=== PATIENT | female | born 2000 | race African-American/Black ===

== ENCOUNTER 2025-02-02 10:19 | Outpatient (OUT) | payer OTHER, SELFPAY ==
--- NOTE | 2025-02-02 11:07 | XR_ITS ---
The [address] [address] Patient Name: ELIAS SOUZA MRN: [id number] date: 2000 Sex: F Assigned Patient Location: [facility] Current Patient Location: [facility] Accession/Order Number: [id number] Exam Date: 02/02/2025 12:43 Report Date: 02/02/2025 12:43 At the request of: JAZMYNE VELEZ DO Procedure: XR chest 2V PA AND LATERAL CHEST: CLINICAL HISTORY: Preop clearance for tubal ligation COMPARISON: None There is no focal parenchymal consolidation, effusion or pneumothorax. The cardiac, hilar and mediastinal silhouettes are within normal limits. There is no vascular congestion. The visualized bony thorax is intact. XR/XR chest 2V IMPRESSION: NO ACUTE CARDIOPULMONARY ABNORMALITY. Impression dictated by: Gely Tinoco M.D.02/02/2025 12:43 PM Dictation Location: [place] [address] Electronically authenticated by: [id number] Y Date: 02/02/2025 12:43
== END 2025-02-02 10:20 | disposition home or self-care (01) ==
LOC: PST 10:21
PROVIDERS: Visit Provider Obstetrics & Gynecology
DX: Z01.810 Encounter for preprocedural cardiovascular examination (principal)
CPT/HCPCS: 71046

== ENCOUNTER 2025-02-17 08:24 | Day surgery (SDC) | payer OTHER, SELFPAY ==
[2025-02-02 10:44] VITALS: BP 140/94; PULSE 81; TEMP 36.3; O2SAT 100; BMI 53.7
[2025-02-17] VITALS (15 sets, daily range): BP systolic 123–149; BP diastolic 73–97; PULSE 77–89; TEMP 36.1–36.6; O2SAT 94–100; BMI 52.1
--- OUTSIDE RECORDS SUMMARY | 2025-02-17 08:28 | XMS_ITS | CCD ---
Author Organization [facility] Inform ion Partnership [facility] Care Team Providers Care Physiological Chemist Name Role Phone Darlene Ledesma Unavailable [phone] Amie Hayden Unavailable Darlene Ledesma CNP Primary Care Provider Ana Donnelly Unavailable Kim Crews Attending UnavailKim Bronson Admitting Unavailabl e NO FAMILY, PHYSICIAN Primary Care Unavailable Darlene Ledesma Primary Care Unavailable Mulugeta Kahn Admitting Unavailable Muulgeta Kahn Attending Unavailable Unavailable Primary Care Provider UnavailJAZMYNE Pinto Attending Unavailable JAZMYNE SNOW Attending Unavailable Medications Current Medications Medication Drug Class(es) Dates Sig (Normalized) Sig (Original) [id number] 200 actuat albuterol 0.09 mg/actuat metered dose inhaler (9 sources) beta2-Adrenergic Agonist Start: 06-12-2022 take 1 puff(s) by inhalation every four hours as needed Proventil HFA 108 (90 Base) MCG/ACT 1 puff as needed Inhalation every 4 hrs for 30 day(s) Jun, Active take 1 puff(s) by in halation every four hours as needed Albuterol Sulfate HFA 108 (90 Base) MCG/ACT 1 puff as needed Inhalation every 4 hrs Active take 1 puff(s) by in halation every four hours as needed Albuterol Sulfate 108 (90 Base) MCG/ACT Aerosol Powder, breath activated Inhale 1 puff every 4 hours as needed for Shortness of Breath. 0 Active nystatin 100 unt/mg topical powder (3 sources) Polyene Antifungal Start: 03-19-2022 Nystatin 10 0000 UNIT/GM 1 application Externally Twice a day for 10 day(s) PRN March, Active predniSONE 20 mg oral tablet (1 source) Start: 02-01-2022 take 2 tablets by mouth every twenty-four hours prednisone 20 MG 2 tablets Orally daily for 5 days Jan, Active Completed/Discontinued Medications Medication Drug Class(es) Dates Sig (Normalized) Sig (Original) nystatin 297703 unit/gm Powder (1 source) End: 05-07-2022 nystatin 215593 unit/gm Powder Apply 1 Application topically 2 times daily. 0 05/07/2022 Discontinued Problems Active Problems Problem Classification Problem Date Documented Da te Episodic/Chronic Anxiety disorders (3 sources) Anxiety; Translations: [Anxiety disorder, unspecified] Chronic Asthma (4 sources) Mild intermittent asthma; Translations: [Mild intermittent asthma, uncomplicated] Onset: 06-12-2022 Resolved: 06-12-2022 Chronic Contraceptive and procreative management (5 sources) Patient encounter status; Translations: [Encounter for other general counseling and advice on contraception] Onset: 01-02-2025 01-02-2025 Episodic Mood disorders (2 sources) Moderate major depression, single episode; Translations: [Major depressive disorder, single episode, moderate] Chronic Nonmalignant breast conditions (4 sources) Hypertrophy of breast; Translations: [Large breast] Onset: 03-19-2022 Resolved: 04-16-2022 Episodic Other connective tissue disease (1 source) Pain in left foot Episodic Other nervous system disorders (7 sources) Carpal tunnel syndrome; Translations: [Carpal tunnel syndrome, bilateral upper limbs] Chronic Other nervous system disorders (6 sources) Chronic pain; Translations: [Other chronic pain] Chronic Other nervous system disorders (2 sources) Other chronic pain Onset: 03-19-2022 Resolved: 04-16-2022 Chronic Other nervous system disorders (9 sources) Paresthesia of skin; Translations: [Paresthesia of hand, bilateral] Onset: 12-30-2021 Resolved: 12-30-2021 Episodic Other nutritional; endocrine; and metabolic disorders (2 sources) Body mass index 40+ - severely obese; Translations: [Morbid (severe) obesity due to excess calories] Onset: 05-07-2022 Chronic Spondylosis; intervertebral disc disorders; other back problems (4 sources) Cervicalgia; Translations: [Chronic back pain ] Onset: 03-19-2022 Resolved: 04-16-2022 Episodic Past or Other Problems Problem Classification Problem Date Documented Da te Episodic/Chronic Mycoses (1 source) Candidiasis of skin and nail Onset: 03-19-2022 Resolved: 03-19-2022 Episodic Other connective tissue disease (1 source) Other enthesopathies, not elsewhere classified Onset: 02-01-2022 Resolved: 02-01-2022 Episodic Other injuries and conditions due to external causes (1 source) Unspecified injury of right wrist, hand and finger(s), initial encounter Onset: 02-01-2022 Resolved: 02-01-2022 Episodic Other non-traumatic joint disorders (2 sources) Pain in right shoulder Onset: 03-19-2022 Resolved: 04-16-2022 Episodic Other non-traumatic joint disorders (2 sources) Pain in left shoulder Onset: 03-19-2022 Resolved: 04-16-2022 Episodic Other nutritional; endocrine; and metabolic disorders (2 sources) Other symptoms and signs concerning food and fluid intake Onset: 12-30-2021 Resolved: 06-12-2022 Episodic Other screening for suspected conditions (not mental disorders or infectious disease) (2 sources) Encounter for screening for lipoid disorders; Translations: [Encounter for screening for other metabolic disorders] Onset: 12-30-2021 Resolved: 12-30-2021 Episodic Results Test Name Value Interpretation Reference Range Facility XR CHEST 2Von 02-02-2025 [place] [address] XRay Report Signed Patient: ELIAS NUNEZ MR#: [id number] : 2000 Acct:[id number] Age/Sex: 24 / F ADM Date: 02/02/25 Loc: PST Attending Dr: Jazmyne Snow D.O. Ordering Physician: Jazmyne Snow D.O. Date of Service: 02/02/25 Procedure(s): XR chest 2V Accession Number(s): [id number] cc: Jazmyne Snow D.O.; Physician,Non-Staff M.DSade [facility] [place] [id number] Patient Name: ELIAS NUNEZ MRN: [facility]:[id number] date: 2000 Sex: F Assigned Patient Location: [facility] Current Patient Location: [facility] Accession/Order Number: [id number] Exam Date: 02/02/2025 12:43 Report Date: 02/02/2025 12:43 At the request of: JAZMYNE SNOW DO Procedure: XR chest 2V PA AND LATERAL CHEST: CLINICAL HISTORY: Preop clearance for tubal ligation COMPARISON: None There is no focal parenchymal consolidation, effusion or pneumothorax. The cardiac, hilar and mediastinal silhouettes are within normal limits. There is no vascular congestion. The visualized bony thorax is intact. XR/XR chest 2V IMPRESSION: NO ACUTE CARDIOPULMONARY ABNORMALITY. Impression dictated by: Gely Tinoco M.D.02/02/2025 12:43 PM Dictation Location: [place] [address] Electronically authenticated by: [id number] Y Date: 02/02/2025 12:43 Dictated By: Gely Tinoco M.D. Signed By: 02/02/25 1246 DD/ 1243 TD/TT: Plant And Equipment Worker: [facility] Radiology, Radiologist, MD - 02/02/2025 [place] [address] XRay Report Signed Patient: ELIAS NUNEZ MR#: [id number] : 2000 Acct:[id number] Age/Sex: 24 / F ADM Date: 02/02/25 Loc: [facility] Attending Dr: Jazmyne Snow D.O. Ordering Physician: Jazmyne Snow D.O. Date of Service: 02/02/25 Procedure(s): XR chest 2V Accession Number(s): [id number] cc: Jazmyne Snow D.O.; Physician,Non-Staff Lucina The [address] [address] Patient Name: ELIAS NUNEZ MRN: [facility]:[id number] date: 2000 Sex: F Assigned Patient Location: [facility] Current Patient Location: [facility] Accession/Order Number: [id number] Exam Date: 02/02/2025 12:43 Report Date: 02/02/2025 12:43 At the request of: JAZMYNE SNOW DO Procedure: XR chest 2V PA AND LATERAL CHEST: CLINICAL HISTORY: Preop clearance for tubal ligation COMPARISON: None There is no focal parenchymal consolidation, effusion or pneumothorax. The cardiac, hilar and mediastinal silhouettes are within normal limits. There is no vascular congestion. The visualized bony thorax is intact. XR/XR chest 2V IMPRESSION: NO ACUTE CARDIOPULMONARY ABNORMALITY. Impression dictated by: Gely Tinoco M.D.02/02/2025 12:43 PM Dictation Location: [place] [address] Electronically authenticated by: [id number] Y Date: 02/02/2025 12:43 Dictated By: Gely Tinoco M.D. Signed By: 02/02/25 1246 DD/ 1243 TD/TT: Plant And Equipment Worker: [facility] Radiology Study observation (narrative) [facility] XR CHEST [facility]Ordered By: [facility] on 02-02-2025 [facility] [employer] Work Phone: Coding Summaryon 12-21-2023 Coding Summary HTMLBase 64 AjsgfuxyQWm8hPb+PGhlY WQ+QN7UKTKlG02haNApaW 7gC7FGDAwPEjwaEDRBMXg OXlSawbMqMR1lkUMlBSXa IC8+BY3qFGFgUghrnKVkv 5D6hKF0P62loe2xXLaocM W1TCTlYlSaltxze2xpqOt 6IDcuNmluOyBt GOXwnR04JKJ4cM52Cu95q NMthHQrc8xieQm6OfRqWC IxNJW2qIadJYauq6IuUNM fX15fsINdi7Q1 GCFddOjynAUeSqEsuIH9a N0uSGpqlggrt0ronaesRa d6yc61hRDhz7A8kTG9K4G afyN6GONxyIRu XxuuhTWMwN6ijvutw2fob yhrVsQmTRHkIAx9FIk0EN RojIzrBfTrZL68BPP1IGQ rzoItJ2DqDFPf eCdwGsC5o0Y3Nq4GW0DAY rmmW4VMTVTECLvodEV+PC 06ww76A4FsVylzYgc6SYK kRAJ4gGF4cZ5z ZOZfLMysr3O7aZI3U9Dtx jIote4wm5thIDGxNFljS6 2wwUWjs5C1OLDodYG4UVB upRjuAyUlkC70 Oyc+VCCmjCdpi9YwCivcx 2emh1adkXk0MtyyBZHryw TlwXpgAPL8l2CkGz8bUKA fmFD4hKF2hV2d DaBcJzP8VHvdM328HqTqt ULpLkmpT17bK6UmsLD+PH IjMmp1UILikFigVK0zA0Q hZGRpbmctbGVm yZfaHN4eUMXibwxaNSYrc C4wFNTsA4t2CdSuGiL8HT haF7QlQYNejetxKm20mX5 lDuWkHnM2PQip K3PydkR2BXBkkGIiZUbzR PJ6A33qz6K4AVRxUNVsSG P8mTP9mJ2ulGprdwuldOS mdDsgdmVydGlj XQwrUWpiB149PXLksAtqY kNvZGluZyBEYXRlOiAgMD IvMTkvMjAyNDwvdGQ+PHR oKTA2lStoDEAf gSKcEBouXk5vbMzbnDtsK Z4pHCQzyptiYHGqpX5ySE PtqJHhgFolFN9uFTGqrzp pg125HnBwBXJ4 VFKeyEHhR9IveC9jFpGdH HWcSRReS0KjeXVkHYgmX8 49DPwoNgJ0KUQcnuZbO1H sLWFsaWduOiB0 o8F8Gz3Ep4WvezbeQ1Dam XRkQdWlMefyMJi5Q1KxSc wvdHI+FK81NOPfQP28XVw 2YZI6yUqiFYej FGFiJ6BtxB1uPyIaJLIfV GRkOyc+PHRhYmxlIHdpZH RoPScxMDAlJyBzdHlsZT0 tEz5vTPJoKEQe kMhklTWpVuCax6uwZHQsN DljZC0enTiuF1PmlYI4KJ Mck0d7Ox87X24rE4IjcUH +MRKabON7wBF5 nL3vXbCoGaO3XCgiP571K lUnxARxSjuwb5fmh2nkeB y7DaN0EXSmkeHakBlyOVD 8i7AuLy49Q87s IHdpZHRoPSIxNSUiIHZhb Qybrk7kxX4cPd3+PGNvbC C5cWH3xC3tCpBmPgU5ROs qA753HuPnrKTe Ihiej1rvw1aejGf5PwLzQ USivmKcnDavZKC7k0VuXs 56U7AukWjcs9KmYxn9de9 0lZYti9X2kAV9 T5SvQTMuffoylXGszNfiV G4eERDrcbmhBZSheT6uGV YvE1s9WsUjFiK2FJqaC0B vvnT0WTJvrRKp VWYgmLPCdQ1decadg3zgq qosMsWcNNVvNBc3IOr2TH OsyQubPlTdRRB4BgB4XLH 0yLSjmR5zlIzj fvpqfD3yMon+UXX4oRXsz AXWEM6iPfhlyCD+PHRkIH Y6lTnqCAboQZJxiA3mCOG xB9r4CxPkJqO0 NMyvM1VindO2OXNokBYbX XTllDXVjL9ytmcyv9vscu bjVmIdELDcLQg3AAp7SGH saWduOiBsZWZ0 MiE4JQD3qTHhtK9vpDeab jcnpZ1nVfm+QmlydGggRG C5TSb3H0UmXss4SCJkjTr tKG3gjEDiVDcc Xt5enFlzpFehIF5cPNHyz ekdj863NbGzu9qnCGIxsO VyLOunCYE2P75ko6Y8GRH dMQEsIGI2uQM6 cR3nsEfknycliMNjcTyxq rJncAhvYXpnPJvvL297HC GzvBptTkWwMVc8B5HmJea 0GJGonWvrJL1i oKVaYVtrOl3jkXnjgVbfM M2lEURnmsazc292RmMjk8 qwYYHpfATxGXzmZJJ1G05 xw0O3SJSsOFUt TCY8tWN1bG9loBrspaoqf GVmdDsgdmVydGljYWwtYW hbQ862DZEkaJhpNrToeUf 9T4JrAbg5ISRg jPatCX3uzCRpRMpsJh1mv DughRdkFV9sSUObwwwkt7 00OuDys8mfKNTdzUOmJNp iNHF2J50vy3B8 XRFvRIEaZPW8jUD8oF5bx GlnbjogbGVmdDsgdmVydG weDYgdQIejP805CJUudTl nPlBhdGllbnQg JPrfVHr4Z3FiCzbrdVI+P L83SGOiMO82tRGcyCXtu4 mnwCi7HgVcFYYkLYJ9pUz qYHkgl8VfVNNa A23uxGGvp4P7SIDbyYzse RIgMhZxqCB5oJ0fJMyqfr bgk3quvsrmOscmw7zfcf6 4oQ31H39lLFgx ZHRoPSIzMCUiIHZhbGlnb b0gcG7sGz4+TOLchEJ2kR T4rR3nMOUyNxA4DOlaE41 9InRvcCIvPjxj d4fdi3cysGg5EzM0WLAms sNaqLpyKVV4j3EbWp32U6 9sIHdpZHRoPSIyMCUiIHZ dxBidqs8laN5o Ii8+DDGmuGL4nFV3bB9mH lPjLrS8KCemS909EvSrwH XyTafxB43vB8BwrKV+PHR lHdj5GCUryHpj NM5xpZClVLnnBy8rYZA7Y tAqKwSkBAbuL1FrFDHqab zbrshfmIK4YKDxGUMztK6 9Et7eiMpoZRSi mZVMjT4bnypgc4fpthgsO rPxKXJzPSs2MXh6DQSdgD lmMtMtBMP6BlV9SGS9nGA jiX5edNxowmlb cB3fH8QtWLCedlybWl00m S4fIgLwWsC0TJwnYbj+RE FOSUVMUywgTUFLQUlMQSB rED2HFWv2L5Jo Cyf8YILppCwxML8ywEEtE VygQm4llTmpnZrqQX7bZG ZkokpsTRIkcJ3dUBXxtMC erIktKB4pWEYd dsxkp745DjObBIA2QJKvi TLrI7YozV4bOjKyUPRzGQ PzR3OjlHXsIOjdR399MNx cIwP0QRQwpcEy O0YjOCIovIlbXnZ1n3N5F k8wJq1qSD3rVSMmAB15QO 26jWSnm6I2sEL5L2AyKCA pbmctcmlnaHQ6 YCXhZSRaaS91kPFeXAgoV b5sj6M7o328BYJrBXGytT 88Bv5awLsvINEbcJFIfI3 gabane7yrovpe YkWeCZEySJb8ZFb6ULEom RnxBeCqDNT4LrX2HHF7zB NhyH9tbOapcjhqnY1oVsh +MjIgWWVhcnM8 S8PvZus7WPIqdRnrZZ8yn RFlULqkBj4sxWtbwFdkGP 6cRSMgvhwdFOWowK0yWHM jsWYtqAouHI1n NFKeyzzws902MyFrJTD0M LKmvKHgJ0UvuZ0fYtPgZG BgEBBiU8YljYTvUUuwA00 7EKwlHtX8TRCn fhErH4GqFICknEjbDcC7s 3W2Du2IHV0YTNI4Z4MsNm j0IAWazIihGI9uoMGeKEd wLd9gvKuwmBfd RB4oJYYdelaoQQNswI8aL EFufUIsbJsyEF0qKYFgis jaw070BjYiKOP6LHLatQR nS4WgbX0wWmIu JVAmNQHpO5QtqULxZIurK 213OAorKcQ2EXFnrqCyF5 YuCGNpbGwbBrQ3w1H5Gm2 SuQWmM9YdE0k6 L8PlAlsttRK+JY31AKOaE D06sJEgvEXii7iiuWw4Mq OlFFXpGMJ1iEcePXoxg8B lHDZfF36lkSPc a1M5DVQbaEcszBGoElSbh UD5aZ7qUTgvvvtwh2vpux mdEnlmw6grai05hI31L24 sIHdpZHRoPSIz RBYeQHAfsParex1gvQ2aC i8+GTBtwFU5aIY2aC5zLt YhSfP0CWfxY084KwBukJF dOtspq7vrm1tm rPy6NsHdPNSdlaXecItoN KA5l0LgUf87T09mPOozAV RoPSIyMCUiIHZhbGlnbj0 ljK4bHg0+PC9j l0uakv72kR11oUW+PHRkI OX0yIcnEEvuWKAblQ4lUW gxAqS8MFVoZbCjkK93pLP oKPxyLd5hwQyo wSklXM9nFHTnunkvt870M tHda7jvJVHoqTRlSKmcXH P4C42yt1M4MRGcWUCnVWX 9vRL9tQ1otYrv bjogbGVmdDsgdmVydGljY SswLZssT233AZZwqKueZf MfjREuW1huioSRKE8hSba vdGQ+PHRkIHN0 aAqlJRreJOSyoY4uNBWoM 0j2WlDcCdH8HFxqZ3Knwp D3DAUipRMvBHPrkJSCeZ6 njmlin1hjioxw MzKrTQOvFPt3TVu8ZNSjs XsqTtRgSJB9JnX6WQH2wV GxaZ5bqQcdgssjkE3jUab +RklOOjwvdGQ+ JINjSBI6zKncEDdzCEZgm Q4wTHGjJ8n9NsAqFbR7CC hnV2CsdhC5MGRzgQQyCXC uxRYSvW2brpsi a3tojbwcKrOuOHToVHx3U Kn8JCTitQpyGhDaIDP6Rn G4FYB9yZXuiM8ouFbvlvr bcT5kUfk+TVJO OjwvdGQ+SPEiBUW4kBacA PwnIEHhpB9dNHFpD9u2Rk QfAeU3SEuiY1RaseN5SVH vbGQgMTBwdCBU vF9odksyf7ekxaosRxMeR NYmVEm3OFa6IAErbKxvOr MbUPT8VjV6FKL1eIBdpF4 sbZatzkypmZ8d Oyc+ACQ4PMA8FJ18GG64F 3RyPjwvdGFibGU+PHRhYm xlIHdpZHRoPScxMDAlJyB zwQgkUS6hFk0b ZGV (more content not included)... Normal [facility] .QC SARS-CoV-2 (COVID-19)/Fl u/RSV (GeneXpert)on 12-15-2023 Internal Control Pass [facility] Comment on above: Order Comment: Order ed by Niya. [[email or web address]] Performed By: #### [id number] #### [facility] (DEFAULT) [address] [place] [address] COVID/Flu/RSV (GeneXpert)on 12-15-2023 Flu A (GXpert COVFLURSV) Positive Normal Negative [facility] Comment on above: Performed By: #### [id number] #### [facility] (DEFAULT) [address] [place] [address] Flu B (GXpert COVFLURSV) Negative Normal Negative [facility] Comment on above: Performed By: #### 7 [id number] #### [facility] (DEFAULT) [address] [place] [address] RSV (GXpert COVFLURSV) Negative Normal Negative [facility] Comment on above: Performed By: #### 7 [id number] #### [facility] (DEFAULT) [address] [place] [address] SARS-CoV-2 (COVID-19) RNA LUIS+probe Ql (Unsp spec) Negative Normal Negative [facility] Comment on above: Result Comment: Perf ormed by PCR methodology. Performed By: #### 7 [id number], [id number] #### [facility] (DEFAULT) [address] [place] [address] ED Clinical Summaryon 2023 ED Clinical Summary [facility] Emergency Department [address] [place] [address] ED Clinical Summary PERSON INFORMATION Name: ELIAS NUNEZ Age: 23 Years Sex: FEMALE : 2000 MRN: Acct#: Visit Reason: Fever; Body aches; Wheezing-Minor; Cough; Nausea and vomiting; BODY ACHES, SOB Arrival: 12/15/2023 20:20:10 Discharge: 12/15/2023 21:34:00 LOS: 000 01:14 Check In: 12/15/2023 20:20:10 Checkout:12/15/2023 21:34:00 Address: [facility] [address] [place] [address] PCP: Darlene Ledesma CNP PROVIDER INFORMATION Provider Role Assigned Unassigned Mulugeta Kahn MD ED Provider 12/15/2023 20:46:02 VITALS INFORMATION Vital Sign Triage Latest Temperature Tympanic Temperature Temporal Artery Pulse Rate O2 Sat 100 % 100 % Respiratory Rate 18 br/min 18 br/min Blood Pressure /107 mmHg /107 mmHg MEDICAL INFORMATION Medications Given: Medication Dose Route benzonatate 100 mg Oral ondansetron 4 mg Oral guaiFENesin (GuaiFENesin oral liquid) 500 mL Oral Allergy Information: No known allergies PHYSICIAN DOCUMENTATION DISCHARGE INFORMATION: Discharge Disposition: Home Discharge Location: Home PATIENT EDUCATION INFORMATION Instructions: Viral Respiratory Infection, Wcbd-Nr-Bjqp Follow-Up: With: Address: When: Darlene Ledesma [address] [place] [phone] [employer] (1) Within 5 to 7 days Comments: You were seen in the emergency department for evaluation of cough and cold symptoms. Your examination suggest this is from an viral upper respiratory infection. This will likely to improve over time. No antibiotic will be necessary as your immune system will likely get rid of the infection. Your symptoms may still be contagious to other people around you. Use universal precautions to avoid spreading the germs. Take 2 tablets acetaminophen or 2 tablets of ibuprofen 3 times a day as needed for aches or discomfort. Use throat lozenges or cough drops to help with throat irritation and cough. May take prochlorperazine 3 times a day as needed for nausea vomiting. May take dextromethorphan 10 mL 3 times a day as needed for cough. Hydrate yourself adequately. Avoid tobacco or other smoking which may irritate the lungs that may exacerbate the cough. Contact your assigned on-call doctor for a follow-up appointment if you do not have a local family doctor. Alternatively, you may follow-up with the [facility] if you are not able to see a PCP in the recommended time. Continue with the current treatment as outlined by the ER physician, Dr Kahn. Called the emergency department if you have any questions concern. Return to the emergency department if you have significant symptoms that concerns you. DIAGNOSIS: Viral URI with cough Patient Understands: Yes - Patient/family/caregi rosalia verbalizes understanding of instructions given Comment: Normal [facility] ED Note - Physicianon 2023 ED Note - Physician Patient: ELIAS NUNEZ Age: 23 years Sex: FEMALE : 2000 Associated Diagnoses: Viral URI with cough; Influenza A Author: Mulugeta Kahn MD Basic Information Time seen: Date & time 12/15/2023 20:30:00. History source: Patient. Arrival mode: Private vehicle. History limitation: None. Additional information: Chief Complaint from Nursing Triage Note : Chief Complaint 12/15/2023 20:31 EST Chief Complaint Pt states she has had cough, nausea, vomiting, body aches, and headache for 3 days. Low grade fever upon arrival to ED. 2 episodes of emesis today. States not able to keep anything down. . History of Present Illness 23-year-old female presented to ER for evaluation of coughing, runny nose, sore throat, body aches, vomiting. Patient stated that she had onset of symptoms about 2 to 3 days ago. Began with sore throat. Then noted that she had nasal congestion, body aches, headaches, cough. Stated that she had multiple cough to the point that her abdomen hurts. Stated that she had coughed to the point of vomiting. Stated that she had prior history of asthma, has been using albuterol on an as-needed basis. Patient admits to smoking marijuana once daily. Stated that she works at [employer]. Recall that she had previous influenza vaccine. Recall that she had previous COVID and COVID-vaccine. Review of Systems Constitutional symptoms: Chills, fatigue. Skin symptoms: Negative except as documented in HPI. Eye symptoms: Negative except as documented in HPI. ENMT symptoms: Sore throat, nasal congestion. Respiratory symptoms: Cough. Gastrointestinal symptoms: Vomiting, No diarrhea, Genitourinary symptoms: No dysuria, Musculoskeletal symptoms: Muscle pain, Joint pain. Neurologic symptoms: Headache. Endocrine symptoms: Negative except as documented in HPI. Health Status Allergies: Allergic Reactions (Selected) No known allergies. Medications: (Selected) Documented Medications Documented ProAir HFA: 2 puff(s), INH, QID, PRN: wheezing, 0 Refill(s). Past Medical/ Family/ Social History Medical history: No active or resolved past medical history items have been selected or recorded., Reviewed as documented in chart. Surgical history: No active procedure history items have been selected or recorded., Reviewed as documented in chart. Family history: No family history items have been selected or recorded., Reviewed as documented in chart. Social history: Social & Psychosocial Habits Alcohol 09/19/2022 Alcohol Use: Never Substance Use 11/12/2022 Substance use: Never Tobacco 11/12/2022 Smoking tobacco use: Never tobacco user Electronic Cigarette/Vaping 11/12/2022 Electronic Cigarette Use: Never , Reviewed as documented in chart. Problem list: Active Problems (2) Asthma Seasonal allergies , per nurse's notes. Physical Examination Vital Signs Vital Signs 12/15/2023 20:31 EST Temperature Oral 37.5 DegC HI Heart Rate Monitored 88 bpm Respiratory Rate 18 br/min Systolic Blood Pressure 122 mmHg Diastolic Blood Pressure 107 mmHg HI SpO2 100 % Oxygen Therapy Room air . General: Alert, no acute distress, Examination revealed normal developed 23-year-old female, awake and alert; no distress at this time. Slightly nasal congestion. Skin: Warm, dry, intact. Head: Normocephalic, atraumatic. Neck: Supple, trachea midline, no tenderness. Eye: Pupils are equal, round and reactive to light, extraocular movements are intact, normal conjunctiva. Ears, nose, mouth and throat: Tympanic membranes clear, oral mucosa moist, no pharyngeal erythema or exudate. Cardiovascular: Regular rate and rhythm, No murmur. Respiratory: Lungs are clear to auscultation, respirations are non-labored, breath sounds are equal, Symmetrical chest wall expansion, No wheezes, rales, rhonchi's,. Gastrointestinal: Soft, Nontender, Normal bowel sounds. Back: Normal range of motion. Musculoskeletal: Normal ROM, normal strength, no tenderness. Neurological: Alert and oriented to person, place, time, and situation. Medical Decision Making Differential Diagnosis:: Bronchitis, upper respiratory infection, asthma, pneumonia, influenza. Orders Launch Orders Pharmacy: dextromethorphan-guai fenesin 30 mg-600 mg oral tablet, extended release (Order): 1 tab(s), Oral, Once ondansetron (Order): 4 mg, Oral, Once benzonatate (Order): 100 mg, Oral, Once Miscellaneous Request: Excuse from Work/School (Order): 12/15/2023 21:02 EST, Seen in ER for medical reason. Please excuse from school. May return on Thursday. Results review: Lab results : Lab Flowsheet 12/15/2023 20:44 EST SARS-CoV-2(Covid19)PC R(GXpert COVFLURSV) Negative Flu A (GXpert COVFLURSV) Positive Flu B (GXpert COVFLURSV) Negative RSV (GXpert COVFLURSV) Negative . Reexamination/ Reevaluation Relevant differential diagnosis: See above discussion: Bronchitis, URI, viral syndrome, influenza, RSV, COVID, asthma, croup, pneumo (more content not included)... Normal [facility] ED Patient Summaryon 024 ED Patient Summary [facility] - Emergency Department [address] [place], [place] [id number] PATIENT DISCHARGE INSTRUCTIONS Patient Information Name: ELIAS NUNEZ Age: 23 Years Date of : 2000 Reason For Visit: Fever; Body aches; Wheezing-Minor; Cough; Nausea and vomiting; BODY ACHES, SOB Arrival Time: 12/15/2023 20:20:10 Primary Care Physician: Darlene Ledesma CNP Attending Physician: Mulugeta Kahn MD Comment: Visit Diagnosis: Diagnoses This Visit Body aches ([id number]) Cough ([id number]) Fever ([id number]) Nausea and vomiting ([id number]) Viral URI with cough (J06.9) Wheezing-Minor ([id number]) The Pharmacy at [facility] is open Thursday through Thursday from 9A to 6P and Thursday and Thursday from 9A to 5P Prescription Information: If you have been given a prescription for narcotics, seek immediate medical attention if you have any difficulty breathing or any sudden status changes such as confusion and sleepiness. If you or anyone you know is experiencing suicidal thoughts, mental health, alcohol and/or drug addiction problems; contact the [facility] 25/05 Crisis Hotline -Text 4HOPE to 168038. If you received any narcotics, sedation, or any other medication that causes drowsiness for the next 24 hours, unless otherwise directed: ? Do not drive a car. ? Do not operate machinery such as power tools, lawn mowers, drills, sewing machines, or stoves ? Avoid alcoholic beverages and drugs for allergies, nerves, or sleep ? Do not make important personal or business decisions or sign any legal documents With: Address: When: [facility] [id number] Business (1) Within 5 to 7 days Comments: You were seen in the emergency department for evaluation of cough and cold symptoms. Your examination suggest this is from an viral upper respiratory infection. This will likely to improve over time. No antibiotic will be necessary as your immune system will likely get rid of the infection. Your symptoms may still be contagious to other people around you. Use universal precautions to avoid spreading the germs. Take 2 tablets acetaminophen or 2 tablets of ibuprofen 3 times a day as needed for aches or discomfort. Use throat lozenges or cough drops to help with throat irritation and cough. May take prochlorperazine 3 times a day as needed for nausea vomiting. May take dextromethorphan 10 mL 3 times a day as needed for cough. Hydrate yourself adequately. Avoid tobacco or other smoking which may irritate the lungs that may exacerbate the cough. Contact your assigned on-call doctor for a follow-up appointment if you do not have a local family doctor. Alternatively, you may follow-up with the [facility] if you are not able to see a PCP in the recommended time. Continue with the current treatment as outlined by the ER physician, Dr Kahn. Called the emergency department if you have any questions concern. Return to the emergency department if you have significant symptoms that concerns you. Medication Information: The exam and treatment you received today in the [facility] Emergency Department were for an urgent problem and are not intended as complete care. It is important for you to follow up with a doctor, nurse practitioner, or physician?s safety assistant for ongoing care. If your symptoms become worse or you do not improve as expected and you are unable to reach your usual health care provider, you should return to the Emergency Department, we are available 24 hours a day. For those patients who have received Radiology results, the interpretation of your X-ray as given to you by our Emergency Department physician is only a preliminary report. The Radiologist will review your films and if there is a change in the diagnosis you will be notified by phone. Please make sure you have provided a working phone number so we can reach you if necessary. In the event that you had a lab culture while you were a patient in the Emergency Department, you will be notified by phone if there is a need to change your antibiotic. Please make sure you have provided a working phone number so we can reach you if necessary. [facility] Emergency Department has provided you with a complete list of medications post discharge. Please inform your crossing supervisor/provider of your visit and for further instruction on these medications. Any specific questions regarding your chronic medications and dosages should be discussed with your primary care physician(s) and/or pharmacist. New Medications [id number], [address], [place] [id number], [phone] benzonatate (Tessalon Perles 100 mg oral capsule) 1 cap(s) Oral (given by mouth) 3 times a day (scheduled) as (more content not included)... Normal [facility] XR wrist RT min 3V*on 2021 XR wrist RT min 3V* [facility] [employer] Other XR wrist RT min 3V* [facility] [email or web address] Other XR wrist RT min 3V* [address] [place] [address] [employer] Other XR wrist RT min 3V* [place] [address] [employer] Other XR wrist RT min 3V* XRay Report [employer] Other XR wrist RT min 3V* Signed [employer] Other XR wrist RT min 3V* Patient: Elias Nunez MR#: [id number] [place] [email or web address] Other XR wrist RT min 3V* 625 [employer] Other XR wrist RT min 3V* : 2000 Acct:[id number] [employer] Other XR wrist RT min 3V* Age/Sex: 21 / F ADM Date: 02/01/22 [employer] Other XR wrist RT min 3V* Loc: [id number] Room: Type: [facility] [employer] Other XR wrist RT min 3V* Attending Dr: Amie Hayden PA-C [employer] Other XR wrist RT min 3V* Ordering Provider: Amie Hayden [employer] Other XR wrist RT min 3V* Date of Service: 02/01/22 [employer] Other XR wrist RT min 3V* XR/XR wrist RT min 3V*: Injury of right wrist, initial encounter [employer] Other XR wrist RT min 3V* Copies to: Amie Hayden [employer] Other XR wrist RT min 3V* Right wrist 4 views. [employer] Other XR wrist RT min 3V* Reason for exam: Pain right hand along the fourth and fifth metacarpals. [employer] Other XR wrist RT min 3V* COMPARISON: None. [employer] Other XR wrist RT min 3V* FINDINGS: No focal soft tissue abnormality. No radiopaque foreign body. No acute bony process. [employer] Other XR wrist RT min 3V* Joint spaces of the wrist appear well-maintained. [employer] Other XR wrist RT min 3V* XR/XR wrist RT min 3V* [employer] Other XR wrist RT min 3V* IMPRESSION: No acute bony process. [employer] Other XR wrist RT min 3V* Impression dictated by: Kevin Ortiz Jr., D.O.02/01/2022 2:05 PM [employer] Other XR wrist RT min 3V* Dictation Location: [place] [address] [employer] Other XR wrist RT min 3V* Transcribed By: PWS 02/01/22 1405 [employer] Other XR wrist RT min 3V* Dictated By: Kevin Ortiz Jr DO 02/01/22 1403 [employer] Other XR wrist RT min 3V* Signed By: [employer] Other XR wrist RT min 3V* 02/01/22 [facility]5 [employer] Other Complete Blood Count Auto Di ffon 12-30-2021 Basophils (Bld) [#/Vol] 0.1 10*3/uL 0.0-0.2 [employer] Other Basophils/100 WBC (Bld) 1.2 % . [employer] Other Eosinophils (Bld) [#/Vol] 0.1 10*3/uL 0.0-0.45 [employer] Other Eosinophils/100 WBC (Bld) 0.8 % . [employer] Other Erythrocyte distribution width (RBC) [Ratio] 13.8 % 11.9-15.3 [employer] Other Hematocrit (Bld) [Volume fraction] 38.8 % 34.0-46.4 [employer] Other Hemoglobin (Bld) [Mass/Vol] 12.8 g/dL 11.8-15.4 [employer] Other Lymphocytes (Bld) [#/Vol] 1.8 10*3/uL 1.00-4.8 [employer] Other Lymphocytes/100 WBC (Bld) 23.1 % . [employer] Other MCH (RBC) [Entitic mass] 29.8 pg 24.7-34.3 [employer] Other MCH (RBC) [Entitic mass] 32.9 pg 32.0-35.0 [employer] Other MCV (RBC) [Entitic vol] 90.6 fL 80-100 [employer] Other Monocytes (Bld) [#/Vol] 0.4 10*3/uL 0.0-0.8 [employer] Other Monocytes/100 WBC (Bld) 5.3 % . [employer] Other Neutrophils (Bld) [#/Vol] 5.3 10*3/uL 1.8-7.7 [employer] Other Neutrophils/100 WBC (Bld) 69.6 % . [employer] Other Platelet mean volume (Bld) [Entitic vol] 8.2 fL 6.3-10.7 [employer] Other Platelets (Bld) [#/Vol] 325 10*3/uL 150-450 [employer] Other RBC (Bld) [#/Vol] 4.28 10*6/uL 3.60-5.00 [employer] Other WBC (Bld) [#/Vol] 7.6 10*3/uL 3.8-11.6 [employer] Other Complete Blood Count Auto Diff 7.6 4.5-11.0 [employer] Other Complete Blood Count Auto Diff 0.1 0-0.5 [employer] Other Comprehensive Metabolic Pane reji 12-30-2021 Albumin [Mass/Vol] 3.6 g/dL 3.2-5.5 [email or web address] Other Albumin/Globulin [Mass ratio] 1.0 {ratio} [place] [email or web address] Other ALP [Catalytic activity/Vol] 91 U/L 32-92 [place] [email or web address] Other ALT [Catalytic activity/Vol] 24 U/L 10-60 [email or web address] Other AST [Catalytic activity/Vol] 28 U/L 10-42 [email or web address] Other Bilirubin [Mass/Vol] 0.4 mg/dL 0.3-1.2 [place] [email or web address] Other Calcium [Mass/Vol] 9.0 mg/dL 8.2-10.2 [place] [email or web address] Other Chloride [Moles/Vol] 101 mmol/L 95-114 [place] [email or web address] Other CO2 [Moles/Vol] 26.6 mmol/L 22.0-30.0 [facility] [employer] Other Creatinine [Mass/Vol] 0.60 mg/dL 0.44-1.03 [place] [email or web address] Other Glucose [Mass/Vol] 78 mg/dL 70-100 [place] [email or web address] Other Potassium [Moles/Vol] 4.2 mmol/L 3.5-5.1 [place] [email or web address] Other Protein [Mass/Vol] 7.2 g/dL 6.1-7.9 [employer] Other Sodium [Moles/Vol] 136 mmol/L 136-146 [employer] Other Urea nitrogen [Mass/Vol] 6 mg/dL 9-23 [employer] Other Comprehensive Metabolic Panel > 60 [employer] Other Comprehensive Metabolic Panel 3.6 [employer] Other Lipid Panelon 12-30-2021 Cholesterol [Mass/Vol] 139 mg/dL 140-200 [employer] Other Cholesterol in HDL [Mass/Vol] 48 mg/dL 35-85 [employer] Other Cholesterol in LDL Elph Qn 83 0-100 [employer] Other Cholesterol.total/ Cholesterol in HDL [Mass ratio] 2.9 {ratio} <5.0 [employer] Other Lipid Panel 38 35-149 [employer] Other Lipid Panel 7 [employer] Other Thyroid Stim Hormone w/Rflxo n 12-30-2021 Thyroid Stim Hormone w/Rflx 2.53 0.45-5.33 [employer] Other Vital Signs Date Time Vital Sign Value Performing Clinician Facility 01-02-2025 09:13-0500 Body weight 132.81 kg Jazmyne Agustin DO Work Phone: [facility] [employer] 01-02-2025 09:13-0500 Diastolic blood pressure 100 mm[Hg] Jazmyne Agustin DO Work Phone: [facility] [employer] 01-02-2025 09:13-0500 Systolic blood pressure 136 mm[Hg] Jazmyne Agustin DO Work Phone: [facility] 03-10-2023 15:15-0400 Body height 160.02 cm Darlene Led[facility] Other [employer] Other 03-10-2023 15:15-0400 Body mass index (BMI) [Ratio] 48.35 kg/m2 D[facility]ene Led[facility] Other [employer] Other 03-10-2023 15:15-0400 Body weight 123.83 kg Darlene Ledesma Other [employer] Other 03-10-2023 15:15-0400 Diastolic blood pressure 86 mm[Hg] Darlene Talamantesacher Other [employer] Other 03-10-2023 15:15-0400 SaO2% (BldA) [Mass fraction] 99 % Darlene Bazzirbacher Other [employer] Other 03-10-2023 15:15-0400 Systolic blood pressure 134 mm[Hg] Darlene Talamantesacher Other [employer] Other 01-08-2023 14:00-0500 Body height 160.02 cm Darlene Talamantesacher Other [employer] Other 01-08-2023 14:00-0500 Body mass index (BMI) [Ratio] 52.61 kg/m2 Darlene Talamantesacher Other [employer] Other 01-08-2023 14:00-0500 Body weight 134.72 kg Darlene Jaegerr Other [employer] Other 01-08-2023 14:00-0500 Diastolic blood pressure 81 mm[Hg] Darlene Talamantesacher Other [employer] Other 01-08-2023 14:00-0500 SaO2% (BldA) [Mass fraction] 99 % Darlene Bazzipamacher Other [employer] Other 01-08-2023 14:00-0500 Systolic blood pressure 139 mm[Hg] Darlene Bazzirbacher Other [employer] Other 06-12-2022 10:30-0400 Body height 160.02 cm Darlene Jaegerdarrel Other [employer] Other 06-12-2022 10:30-0400 Body mass index (BMI) [Ratio] 55.79 kg/m2 Darlene Ledesma Other [facility] Other 06-12-2022 10:30-0400 Body weight 142.88 kg Darlene Jaegerdarrel Other [employer] Other 06-12-2022 10:30-0400 Diastolic blood pressure 84 mm[Hg] Darlene Talamantesshaw Other [employer] Other 06-12-2022 10:30-0400 SaO2% (BldA) [Mass fraction] 99 % Darlene Talamantesshaw Other [employer] Other 06-12-2022 10:30-0400 Systolic blood pressure 128 mm[Hg] Darlene Talamantesshaw Other [employer] Other 05-07-2022 09:57-0400 Body height 160 cm Cecilia Bravo MD Work Phone: [facility] 05-07-2022 09:57-0400 Body mass index (BMI) [Ratio] 55.27 kg/m2 Cecilia Bravo MD Work Phone: [facility] [employer] [facility] 05-07-2022 09:57-0400 Body temperature 98.1 [degF] Cecilia Bravo MD Work Phone: [facility] 05-07-2022 09:57-0400 Body weight 141.52 kg Cecilia Bravo MD Work Phone: [facility] 05-07-2022 09:57-0400 Diastolic blood pressure 98 mm[Hg] Cecilia Bravo MD Work Phone: [employer] 05-07-2022 09:57-0400 Heart rate 93 /min Cecilia Bravo MD Work Phone: [employer] [facility] 05-07-2022 09:57-0400 Systolic blood pressure 163 mm[Hg] Cecilia Bravo MD Work Phone: [employer] 04-16-2022 11:30-0400 Body height 160.02 cm Darlene Ledesma Other [employer] Other 04-16-2022 11:30-0400 Body mass index (BMI) [Ratio] 55.79 kg/m2 Darlene Ledesma Other [employer] Other 04-16-2022 11:30-0400 Body weight 142.88 kg Darlene Ledesma Other [employer] Other 04-16-2022 11:30-0400 Diastolic blood pressure 88 mm[Hg] Darlene Ledesma Other [employer] Other 04-16-2022 11:30-0400 SaO2% (BldA) [Mass fraction] 99 % Darlene Ledesma Other [employer] Other 04-16-2022 11:30-0400 Systolic blood pressure 126 mm[Hg] Darlene Ledesma Other [employer] Other 03-19-2022 10:30-0400 Body height 160.02 cm Darlene Ledesma Other [employer] Other 03-19-2022 10:30-0400 Body mass index (BMI) [Ratio] 55.26 kg/m2 Darlene Bazzijosé luis Other [employer] Other 03-19-2022 10:30-0400 Body temperature 98.6 [degF] Darlene Callie Other [employer] Other 03-19-2022 10:30-0400 Body weight 141.52 kg Darlene Callie Other [employer] Other 03-19-2022 10:30-0400 Diastolic blood pressure 80 mm[Hg] Darlene Callie Other [employer] Other 03-19-2022 10:30-0400 Respiratory rate 18 /min Darlene Callie Other [employer] Other 03-19-2022 10:30-0400 SaO2% (BldA) [Mass fraction] 100 % Darlene Callie Other [employer] Other 03-19-2022 10:30-0400 Systolic blood pressure 142 mm[Hg] Darlene Callie Other [employer] Other 02-01-2022 14:30-0400 Body temperature 98.6 [degF] Amie Hayden Other [employer] Other 02-01-2022 14:30-0400 Body weight 145.15 kg Amie Hayden Other [employer] Other 02-01-2022 14:30-0400 Respiratory rate 18 /min Amie Hayden Other [employer] Other 02-01-2022 14:30-0400 SaO2% (BldA) [Mass fraction] 98 % Amie Hayden Other [employer] Other 12-30-2021 11:30-0500 Body height 160.02 cm Darlene Ledesma Other [employer] Other 12-30-2021 11:30-0500 Body mass index (BMI) [Ratio] 57.03 kg/m2 Darlene Ledesma Other [employer] Other 12-30-2021 11:30-0500 Body weight 146.06 kg Darlene Ledesma Other [employer] Other 12-30-2021 11:30-0500 Diastolic blood pressure 88 mm[Hg] Darlene Ledesma Other [employer] Other 12-30-2021 11:30-0500 Respiratory rate 18 /min Darlene Ledesma Other [employer] Other 12-30-2021 11:30-0500 Systolic blood pressure 132 mm[Hg] Darlene Ledesma Other [employer] Other Encounters Encounter Date Encounter Type Care Provider Facility Start: 02-02-2025 End: 02-02-2025 Clinisync Result Encounter Jazmyne Agustin DO Work Phone: [facility] Unsolicited Start: 02-02-2025 End: 02-02-2025 Clinisync Result Encounter Jazmyne Agustin DO Work Phone: [facility] Unsolicited Start: 01-23-2025 End: 01-23-2025 ambulatory JAZMYNE AGUSTIN Not Available Start: 01-02-2025 End: 01-02-2025 Bamboo flowsheet Jazmyne Agustin DO Work Phone: [facility] Start: 01-02-2025 End: 01-02-2025 Bamboo flowsheet Jazmyne Agustin DO Work Phone: [facility] Start: 01-02-2025 End: 01-02-2025 Office outpatient visit 15 minutes Jazmyne Agustin DO Work Phone: [facility] Comment on above: Sterilization consul t Start: 01-02-2025 End: 01-02-2025 ambulatory JAZMYNE AGUSTIN Not Available Start: 12-15-2023 End: 12-15-2023 Emergency department patient visit Darlene Ledesma Facility:[facility] Start: 04-08-2023 ambulatory Kim Brewster cility:[facility] Start: 03-10-2023 End: 03-10-2023 ambulatory Darlene Ledesma Other [employer] Other Start: 03-10-2023 Office outpatient vi sit 15 minutes Darlene Ledesma [facility] Start: 01-08-2023 End: 01-08-2023 ambulatory Darlene Ledesma Other [employer] Other Start: 01-08-2023 Office outpatient vi sit 15 minutes Darlene Ledesma [facility] Start: 06-12-2022 End: 06-12-2022 ambulatory Darlene Ledesma Other [employer] Other Start: 06-12-2022 Office outpatient vi sit 15 minutes Darlene Ledesma [facility] Start: 05-07-2022 End: 05-07-2022 ambulatory Ana Donnelly Other [employer] Other Start: 05-07-2022 Telephone encounter Ana Pearson [employer] Start: 05-07-2022 End: 05-07-2022 Office outpatient new 30 minutes Cecilia Bravo MD Work Phone: [facility] Comment on above: Macromastia (Primary Dx); Chronic back pain, unspecified back location, unspecified back pain laterality; Morbid obesity with BMI of 50.0-59.9, adult Start: 04-16-2022 End: 04-16-2022 ambulatory Darlene Ledesma Other [employer] Other Start: 04-16-2022 Office outpatient vi sit 15 minutes Darlene Ledesma [facility] Start: 03-19-2022 End: 03-19-2022 ambulatory Darlene Ledesma Other [employer] Other Start: 03-19-2022 Office outpatient vi sit 25 minutes Darlene Ledesma [facility] Start: 02-01-2022 End: 02-01-2022 ambulatory Amie Hayden Other [employer] Other Start: 02-01-2022 Office outpatient vi sit 15 minutes Amie Hayden [facility] Start: 12-30-2021 End: 12-30-2021 ambulatory Darlene Ledesma Other [employer] Other Start: 12-30-2021 Encounter for genera l adult medical examination without abnormal findings Darlene Ledesma [facility] Start: 12-30-2021 Initial preventive medicine new pt age 18-39yrs Darlene Ledesma [facility] Procedures Date Procedure Procedure Detail Performing Clinician Start: 02-02-2025 XR CHEST 2V Jazmyne Eric valles DO Work Phone: Plan of Treatment Date Care Activity Detail Author Start: 07-03-2025 Influenza vaccination Influenz a Vaccine (Season Ended) [facility] Start: 01-23-2025 End: 01-23-2025 Patient encounter procedure 01/23/2025 10:50 AM EDT Consult [facility] [address] [id number] Jazmyne Snow, DO [address] [place] [address] [facility] Start: 01-02-2025 End: 01-02-2025 Patient encounter procedure 01/02/2025 9:10 AM EST Office Visit [facility] [address] [id number] Jazmyne Snow, DO [address] [place] [address] Arrived [facility] Comment on above: Arrived Start: 07-03-2024 Influenza vaccination Influenz a Vaccine (#1) [facility] Start: 07-03-2022 Influenza vaccination INFLUENZ A VACCINE (#1) [facility] Start: 2022 Screening for malign ant neoplasm of cervix CERVICAL CANCER SCREENING DISCUSSION [facility] Start: 04-08-2021 COVID-19 VACCINE (2 - Booster for Cesar series) COVID-19 VACCINE (2 - Booster for Cesar series) [facility] Start: 2020 Third diphtheria, te tanus and acellular pertussis (DTaP) vaccination TDAP (ADULT) [facility] Start: 2019 Tetanus vaccination TETANUS [facility] Start: 2017 Screening for Chlamy tameka trachomatis CHLAMYDIA SCREEN [facility] Start: 2016 HIV screening HIV SCREENING DISCUSSION [facility] Start: 2012 Vaccination for ben n papillomavirus HPV VACCINE ADOL (1 - 2-dose series) [facility] Start: 2001 GONORRHEA SCREEN GONORRHEA SCREEN Av [facility] Start: 2001 Hepatitis C antibody , confirmatory test HEPATITIS C VIRUS SCREENING [facility] Payers Date Payer Category Payer Managed Care HMO (unspecified) [employer] [id number] 2024 Private Health Insurance [id number] 2023 Self-pay 2022 Unknown [employer] [id number] 2022-Present [address] [place] [address] [id number] 2001 Unknown [id number] 2001 Unknown [id number] 2001 Unknown [id number] Medicaid [id number] Unknown [id number] Unknown [id number] Social History Date Type Detail Facility Sex Assigned At [employer] Other Start: 05-07-2022 Tobacco smoking status OHIS Never smoked tobacco [facility] Start: 05-07-2022 Tobacco use and exposure Smokeless tobacco non-user [facility] Start: 05-07-2022 Alcohol intake Lifetime non-d abisai (finding) [facility] Start: 2001 Sex Assigned At Not on file [facility] Tobacco smoking status NHIS Tobacco smoking consumption unknown [facility] Start: 2001 Sex assigned at Female N [facility] Start: 01-01-2025 Gender identity Identifies as female gender (finding) [facility] Clinical Notes 12-30-2021 to 01-02-2025 Laine QuirozJESSIKA - 01/02/2025 9:10 AM EST Note Date & Type Note Facility 01-02-2025 History of Presen t illness Narrative Reason for Appointment: Patient ID: Elias Nunez is a 24 y.o. female who presents for Dicuss Tubal Patient presents today for Consult appointment. MEDICATIONS No current outpatient medications ALLERGIES No Known Allergies PROBLEMS Active Ambulatory Problems Diagnosis Date Noted Sterilization consult 01/02/2025 Resolved Ambulatory Problems Diagnosis Date Noted No Resolved Ambulatory Problems No Additional Past Medical History HISTORY PAST MEDICAL HISTORY SOCIAL HISTORY History reviewed. No pertinent past medical history. Social History Tobacco Use Smoking status: Not on file Smokeless tobacco: Not on file Substance Use Topics Alcohol use: Not on file Drug use: Not on file FAMILY HISTORY No family history on file. SURGICAL HISTORY Past Surgical History: Procedure Laterality Date CARPAL TUNNEL RELEASE REVIEW OF SYSTEMS Review of Systems: Review of Systems All other systems reviewed and are negative. OBJECTIVE Objective: Physical Exam Constitutional: Appearance: Normal appearance. She is well-developed. Cardiovascular: Rate and Rhythm: Normal rate and regular rhythm. Pulmonary: Effort: Pulmonary effort is normal. Breath sounds: Normal breath sounds. Abdominal: General: Bowel sounds are normal. There is no distension. Palpations: Abdomen is soft. Tenderness: There is no abdominal tenderness. There is no guarding or rebound. Musculoskeletal: General: No swelling. Normal range of motion. Right lower leg: No edema. Left lower leg: No edema. Neurological: Mental Status: She is alert and oriented to person, place, and time. Skin: General: Skin is warm and dry. Psychiatric: Mood and Affect: Mood normal. Behavior: Behavior normal. Vitals and nursing note reviewed. Exam conducted with a project management manager present. Vitals: There is no height or weight on file to calculate BMI. BP: (!) 136/100 No LMP recorded. ASSESSMENT & PLAN ICD-10-CM 1. Sterilization consult Z30.09 Patient presents today to discuss sterilization. Discussed conservative LARCs options with patient verses surgical management. Patient would prefer to have surgical management due to not desiring to have any childbearing. Discussed with patient that due to age and currently not having children it would be beneficial to have bilateral tubal ligation via Filshe Clips. Patient is agreeable and will setup surgical date prior to leaving office today. Documented by Laine Quiroz LPN on behalf of: Jazmyne Snow DO documented in this encounter [facility] 12-15-2023 Note Education Materials Infectious Disease Viral Respiratory Infection A viral respiratory infection is an illness that affects parts of the body that are used for breathing. These include the lungs, nose, and throat. It is caused by a germ called a virus. Some examples of this kind of infection are: ? A cold. ? The flu (influenza). ? A respiratory syncytial virus (RSV) infection. What are the causes? This condition is caused by a virus. It spreads from person to person. You can get the virus if: ? You breathe in droplets from someone who is sick. ? You come in contact with people who are sick. ? You touch mucus or other fluid from a person who is sick. What are the signs or symptoms? Symptoms of this condition include: ? A stuffy or runny nose. ? A sore throat. ? A cough. ? Shortness of breath. ? Trouble breathing. ? Yellow or green fluid in the nose. Other symptoms may include: ? A fever. ? Sweating or chills. ? Tiredness (fatigue). ? Achy muscles. ? A headache. How is this treated? This condition may be treated with: ? Medicines that treat viruses. ? Medicines that make it easy to breathe. ? Medicines that are sprayed into the nose. ? Acetaminophen or NSAIDs, such as ibuprofen, to treat fever. Follow these instructions at home: Managing pain and congestion ? Take baak-jbk-[id number] and prescription medicines only as told by your doctor. ? If you have a sore throat, gargle with salt water. Do this 3?4 times a day or as needed. ? To make salt water, dissolve ??1 tsp (3?6 g) of salt in 1 cup (237 mL) of warm water. Make sure that all the salt dissolves. ? Use nose drops made from salt water. This helps with stuffiness (congestion). It also helps soften the skin around your nose. ? Take 2 tsp (10 mL) of honey at bedtime to lessen coughing at night. ? Do not give honey to children who are younger than 1 year old. ? Drink enough fluid to keep your pee (urine) pale yellow. General instructions ? Rest as much as possible. ? Do not drink alcohol. ? Do not smoke or use any products that contain nicotine or tobacco. If you need help quitting, ask your doctor. ? Keep all follow-up visits. How is this prevented? ? Get a flu shot every year. Ask your doctor when you should get your flu shot. ? Do not let other people get your germs. If you are sick: ? Wash your hands with soap and water often. Wash your hands after you cough or sneeze. Wash hands for at least 20 seconds. If you cannot use soap and water, use hand research asst. ? Cover your mouth when you cough. Cover your nose and mouth when you sneeze. ? Do not share cups or eating utensils. ? Clean commonly used objects often. Clean commonly touched surfaces. ? Stay home from work or school. ? Avoid contact with people who are sick during cold and flu season. This is in fall and winter. Get help if: ? Your symptoms last for 10 days or longer. ? Your symptoms get worse over time. ? You have very bad pain in your face or forehead. ? Parts of your jaw or neck get very swollen. ? You have shortness of breath. Get help right away if: ? You feel pain or pressure in your chest. ? You have trouble breathing. ? You faint or feel like you will faint. ? You keep vomiting and it gets worse. ? You feel confused. These symptoms may be an emergency. Get help right away. Call your local emergency services (911 in the [place] ? Do not wait to see if the symptoms will go away. ? Do not drive yourself to the hospital. Summary ? A viral respiratory infection is an illness that affects parts of the body that are used for breathing. ? Examples of this illness include a cold, the flu, and a respiratory syncytial virus (RSV) infection. ? The infection can cause a runny nose, cough, sore throat, and fever. ? Follow what your doctor tells you about taking medicines, drinking lots of fluid, washing your hands, resting at home, and avoiding people who are sick. This information is not intended to replace advice given to you by your health care provider. Make sure you discuss any questions you have with your health care provider. Document Revised: 01/23/2022 Document Reviewed: 01/23/2022 [employer] Patient Education ? 2022 [employer]. [facility] 03-10-2023 Evaluation note Encounter Date Diagnosis Assessment Notes March, Current moderate episode of major depressive disorder without prior episode (ICD-10 - F32.1) We discussed symptoms and she is afraid that she has bipolar like her mother and would like a referral to Psychiatry for a complete work-up. Referral sent. 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 OTC Aleve with food as directed. Instructed patient to do calf stretches and use tennis ball to massage plantar surface of foot in the arch in the morning prior to getting out of bed. Provided pt with hanout of exercies. Will Make appointment with Podiatry if pain worsens. Patient verbalized understanding and agreed with treatment plan. Will call pt with x-ray results and futher recommendations. [facility] Other 08-11-2022 Evaluation note* Encounter Date Diagnosis Assessment Notes Treatment Notes Treatment Clinical Notes Jun, Mild intermittent asthma without complication (ICD-10 - J45.20) Discussed will change perscription to the Proventil- albuterol brand so that she can trial this as the ventolin was not helping with symptoms. Jun, Unable to lose weight (ICD-10 - R63.8) Discussed options. GIven information for weight loss management providers in the area. Pt will contact to set up an appointment. [facility] Other 07-06-2022 History of Present illness Narrative* Brittny Joshi LPN - 05/07/2022 9:45 AM EDT General Plastics Review of Systems: Do you have any of the following: Chills, Fatigue, Fever or Night Sweats: no. Ear pain or eye discharge: no. Hearing loss or visual changes: no. Sore throat or chronic cough: no. Shortness of breath: no. Chest pain, swelling, or heart palpitations: no. Abdominal pain: no. Constipation or diarrhea: no. Heartburn or Nausea: no. Rash or skin problems: yes. Dizziness or numbness: no. Headaches or Migraines: no. Seizures: no. Joint pain, joint swelling or muscle weakness: no. Bruise or bleed easily: no. Any swollen lymph nodes: no. Have you used any nicotine products in the last 3 months? no. Do you use any cannabis, THC or marijuana containing products? no. Are you currently taking the medication Adipex? no. * Cecilia Bravo MD - 05/07/2022 9:45 AM EDT Subjective: lEias Nunez is an 22 y.o. female who presents for evaluation of Bilateral mammary hyperplasia and a desire to have breast reduction. She complains of bilateral shoulder and back pain. She has indentations to both shoulders from bra straps. She wears sports bra due to she can't find one that fits her large breast. Her sports bra size is a 5X. She has tried physical therapy with no relief. No Known Allergies Current Outpatient Medications Medication Sig Dispense Refill Albuterol Sulfate 108 (90 Base) MCG/ACT Aerosol Powder, breath activated Inhale 1 puff every 4 hours as needed for Shortness of Breath. No current facility-administered medications for this visit. Past Medical History: Diagnosis Date Asthma Cervicalgia Chronic pain Right and left shoulder and back Macromastia No past surgical history on file. Family History Problem Relation Age of Onset Schizophrenia Mother Bipolar Disorder Mother Cancer Maternal Grandmother Social History Socioeconomic History Marital status: Single Spouse name: Not on file Number of children: Not on file Years of education: Not on file Highest education level: Not on file Occupational History Not on file Tobacco Use Smoking status: Never Smoker Smokeless tobacco: Never Used Substance and Sexual Activity Alcohol use: Never Drug use: Never Sexual activity: Not on file Other Topics Concern Not on file Social History Narrative Not on file Social Determinants of Health Financial Resource Strain: Not on file Food Insecurity: Not on file Transportation Needs: Not on file Physical Activity: Not on file Stress: Not on file Social Connections: Not on file Intimate Partner Violence: Not on file Housing Stability: Not on file Review of Systems Pertinent items are noted in HPI. General Plastics Review of Systems: Do you have any of the following: Chills, Fatigue, Fever or Night Sweats: no. Ear pain or eye discharge: no. Hearing loss or visual changes: no. Sore throat or chronic cough: no. Shortness of breath: no. Chest pain, swelling, or heart palpitations: no. Abdominal pain: no. Constipation or diarrhea: no. Heartburn or Nausea: no. Rash or skin problems: yes. Dizziness or numbness: no. Headaches or Migraines: no. Seizures: no. Joint pain, joint swelling or muscle weakness: no. Bruise or bleed easily: no. Any swollen lymph nodes: no. Have you used any nicotine products in the last 3 months? no. Do you use any cannabis, THC or marijuana containing products? no. Are you currently taking the medication Adipex? no. Objective: BP (!) 163/98 Pulse 93 Temp 98.1 F (36.7 C) (Temporal) Ht 1.6 m (5' 3 ) Wt (!) 141.5 kg (312 lb) BMI 55.27 kg/m Smoking Status Never Smoker Patient is morbidly obese. Bilateral mammary hyperplasia and ptosis. Shoulder grooves and hypertrophy of the trapezius. There is no palpable masses or axillary adenopathy. The procedure of Breast reduction was thoroughly reviewed with the patient. The patient's goals and expectation for the surgery were reviewed, as well as the reasonable expected outcome. The expected pre-, intra-, and post- operative course was reviewed. I discussed with the patient that at her present weight, she would be at increased risk for seriousperioperative complications including wound healing, wound dehiscence, infection, and respiratory compromise. I briefly discussed consideration of bariatric surgery before proceeding with elective breast reduction. I indicated that I would Happy to reassess her when she is able to lose weight. Assessment: Bilateral mammary hypertrophy Morbid obesity Plan: The pt is to call with any further problems or questions, otherwise I will see them back PRN. [facility]* Encounter Date Diagnosis Assessment Notes Treatment Notes Treatment Clinical Notes Apr, Macromastia (ICD-10 - N62) Pt is here today for an evaluation of macromastia and possibility of breast reduction in the future. She is currently in phyiscial therapy with no improvement in her her neck or bilateral shoulder upper back pain. She has 3 sessions left. Referral sent to plastic surgeon for further evalation. Apr, Other chronic pain (ICD-10 - G89.29) Apr, Pain in right shoulder (ICD-10 - M25.511) Apr, Pain in left shoulder (ICD-10 - M25.512) Apr, Cervicalgia (ICD-10 - M54.2) [facility] Other 05-18-2022 Evaluation note* Encounter Date Diagnosis Assessment Notes Treatment Notes Treatment Clinical Notes March, Macromastia (ICD-10 - N62) Pt is here today for an evaluation of macromastia and possibility of breast reduction in the future. Discussed with patient to call her [facility] to get the process started to identify what they will need to start the process for breast reduction. Will refer to phyiscal therapy for her chronic neck and shoulder pain. March, Candidal intertrigo (ICD-10 - B37.2) Use RX as directed. Practice good hygiene, wash area with mild cleanser and warm water. Pat or blow dry (cool setting) effectively. Encouraged patient to keep area free of exposure to excessive moisture. Instructed patient to keep affected areas clean and dry. Use absorbent material or clothing such as cotton. F/u in the office or dermatology in 1 week or sooner if s/s persists or worsens. Patient verbalized understanding and agreement of tx plan. March, Other chronic pain (ICD-10 - G89.29) March, Pain in right shoulder (ICD-10 - M25.511) Discussed with patient referral to phsycial therapy to determine if she has any improvement in the pain or this is all related to her enlarged breasts. RICE therapy. otc ibuprofen/tylenol prn for pain. ice/warm compresses as directed. immediate eval if warning symptoms of neurovascular compromise. Referral placed to physical therapy. otherwise follow up if new/worsening symptoms. pt verbalizes understanding and agrees c tx plan. March, Pain in left shoulder (ICD-10 - M25.512) March, Cervicalgia (ICD-10 - M54.2) [facility] Other 04-02-2022 Evaluation note* Encounter Date Diagnosis Assessment Notes Treatment Notes Treatment Clinical Notes Jan, Injury of right wrist, initial encounter (ICD-10 - S69.91XA) FINAL READ shows no acute bony abnormality. Results were reviewed and discussed with pt in office at time of visit and they verbally understood these findings. Jan, Tendinitis of right wrist (ICD-10 - M77.8) Rx meds as directed with food. Ice first 48 hrs as directed, then moist heat thereafter. Pt to wear wrist splint as directed. RICE therapy. No heavy lifting or strenuous exercise. Stretching exercises as discussed. Pt to f/u as needed for any persistent or worsening symptoms. Pt understood and agreed to treatment plan. [facility] Other 02-28-2022 Evaluation note* Encounter Date Diagnosis Assessment Notes Treatment Notes Treatment Clinical Notes Dec, Unable to lose weight (ICD-10 - R63.8) Discussed with patient will check thyroid levels to determine a cause. Dec, Wellness examination (ICD-10 - Z00.00) Wellness performed today. Height, weight, BMI, and immunization records reviewed. Dental care discussed and encouraged semi-annual dental care. Encouraged annual vision screenings. Encouraged regular periods of exercise. Enocuraged to eat a diet rich in plant-based floods and lean protein. Limit junk food and sources of excess calories. Dec, Screening for lipid disorders (ICD-10 - Z13.220) Dec, Screening for metabolic disorder (ICD-10 - Z13.228) Dec, 2021 Paresthesia of hand, bilateral (ICD-10 - R20.2) Based on PE findings, patient''s symptoms likely caused by carpal tunnel. Carpal tunnel syndrome is a nerve problem. It can cause tingling, numbness, weakness, or pain in the fingers, thumb, and hand. The median nerve and tendons run through a space in the wrist called the carpal tunnel. The repeated hand motions used in work and some hobbies and sports can put pressure on the nerve. Reduce the activity that causes your symptoms. If you cannot stop the activity, take frequent breaks to rest and stretch or change hand positions to do a task. Try switching hands, such as when using a computer mouse. Try to avoid bending or twisting your wrists. Take ibuprofen/Tylenol as needed for pain and discomfort. Put ice or a cold pack on affected wrist for 10 to 20 minutes at a time to ease pain. Put a thin cloth between the ice and your skin. Encouraged patient to continue wearing wrist splint to bed.Referred for EMG. May refer to ortho depending on resutls of EMG. Patient should follow up with ortho sooner if symptoms worsen. Patient verbalized understanding and agreement with tx plan. [facility] Other Evaluation note* Diagnosis Macromastia- Primary Hypertrophy of breast Chronic back pain, unspecified back location, unspecified back pain laterality Morbid obesity with BMI of 50.0-59.9, adult [facility] InformationNort [email or web address] Other Evaluation note* Diagnosis Sterilization consult Other general counseling and advice for contraceptive management documented in this encounter [facility] Narrative - Reported* Type Description Date Medical History asthma [facility] Other History general Narrative - Reported* Type Description Date Medical History asthma Surgical History carpal tunnel release-left [facility] Other Reason for Referral Reason need EMG of upp er extremities bilaterally Diagnosis 1 Paresthesia of hand, bilateral (R20.2) Referral Organization [facility] Referring Provider First Name Darlene Referring Provider Last Name Callie Referring Provider Specialty Nurse Pract itioner Referred Organization [facility] Referred Address [address] [place], [place],[address] Referred Provider Specialty Neurology Referral Priority Routine General Notes Pati Epperson 08:42:44 AM >received today, attachments made, waiting for notes to be locked to fax Reason evaluate and tr eat for breast reduction surgery, [facility] - Diagnosis 1 Macromastia (N62) Diagnosis 2 Other chronic pain ( G89.29) Diagnosis 3 Pain in right should er (M25.511) Diagnosis 4 Pain in left shoulde r (M25.512) Diagnosis 5 Cervicalgia (M54.2) Referral Organization [facility] [place] Referring Provider First Name Darlene Referring Provider Last Name Vinitaacher Referring Provider Specialty Nurse Pract itioner Referred Organization Unknown Facility Referred Provider Cecilia Bravo Referred Provider Specialty Plastic and Reconstructive Surgery Referral Priority Routine General Notes Pati Epperson 08:38:32 AM >received today Pati Epperson 04/17/2022 08:39:53 AM >attachments made, waiting for notes to be locked to fax Clinical Notes [facility] - Reason *FU 03/18 evaluate --- needs to see psychiatry for work up for bipolar Diagnosis 1 Current moderate epi sode of major depressive disorder without prior episode (F32.1) Diagnosis 2 Disassociation (F48. 8) Referral Organization [facility] [place] Referring Provider First Name Darlene Referring Provider Last Name Vinitaachedarrel Referring Provider Specialty Nurse Pract itioner Referred Organization [facility] [place] Referred Address [address],[place],[address] Referred Provider Specialty Psychiatry Referral Priority Routine General Notes Pati Epperson 11:34:56 AM >received today, attachments made, referral faxed Clinical Notes PC Summary Purpose Family History No Family History Records FoundNo Family History Records FoundNo Family History Records Found Advance Directives No Advanced Directives Records FoundNo Advanced Directives Records FoundNo Advanced Directives Records Found Additional Source Comments REASON FOR VISIT (unrecogniz ed section and content) Reason Comments New Patient Elias is here toda y to discuss a breast reduction. She complains of bilateral shoulder and back pain. She has indentations to both shoulders from bra straps. She wears sports bra due to she can't find one that fits her large breast. Her sports bra size is a 5X. She has tried physical therapy with no relief. Specialty Diagnoses / Procedures Referred By Bianca machado Referred To Contact Plastic Surgery Diagnoses Chronic left shoulder pain Chronic right shoulder pain Other chronic pain Macromastia Cervicalgia Darlene Ledesma CNP [address] [place] [address] Cecilia Bravo MD [address] [place] [address] Referral ID Status Reason Start Date Expiration Date V isits Requested Visits Authorized [id number] Pending Review 04/21/2022 05/16/2023 1 1 Reason Comments [facility] Teams (unrecognized sec tion and content) Physiological Chemist Relationship Specialty Start Date End Date Darlene Ledesma, RAJ [address] [place] [address] (Fax) PCP - General Certified Nurse Practitioner 04/21/22 INFORMATION SOURCE (unrecogn ized section and content) DATE CREATED AUTHOR 04/18/2023 [facility] DATE CREATED AUTHOR AUTHOR'S ORGANIZ ATION 12/21/2023 [facility] DATE CREATED AUTHOR AUTHOR'S ORGANIZ ATION 01/23/2025 [facility] FOR RECORDS PERTAINING TO PATIENTS WHO ARE OR HAVE BEEN ENROLLED IN A CHEMICAL DEPENDENCY/SUBSTANCEABUSE PROGRAM, SOME INFORMATION MAY BE OMITTED. This clinical summary was aggregated from multiple sources. Caution should be exercised in using it in the provision of clinical care. This summary normalizes information from multiple sources, and as a consequence, information in this document may materially change the coding, format and clinical context of patient data. In addition, data may be omitted in some cases. CLINICAL DECISIONS SHOULD BE BASED ON THE PRIMARY CLINICAL RECORDS. [employer] provides no warranty or guarantee of the accuracy or completeness of information in this document.
[2025-02-17 08:59] LABS: Basophils Percent Auto 0.5 % (0.2-2.0); Eosinophils Absolute Auto 0.1 10^3/uL (0.0-0.7); Eosinophils Percent Auto 0.9 % (0.9-7.0); Hematocrit 38.8 % (36.0-48.0); Hemoglobin 12.7 g/dL (12.0-16.0); Immature Granulocytes Abs Auto 0.02 10^3/uL (0.00-0.03); Immature Granulocytes Pct Auto 0.3 % (0.0-0.5); Lymphocytes Absolute Auto 2.1 10^3/uL (1.2-3.8); Lymphocytes Percent Auto 27.3 % (20.5-60.0); Mean Corpuscular HGB Conc 32.7 g/dL (29.9-35.2); Mean Corpuscular Hemoglobin 30.8 pg (26.7-34.0); Mean Corpuscular Volume 93.9 fL (81.0-99.0); Monocytes Absolute Auto 0.5 10^3/uL (0.3-0.8); Monocytes Percent Auto 6.2 % (1.7-12.0); Neutrophils Percent Auto 64.8 % (43.0-75.0); Platelet Count 364 10^3/uL (150-450); Red Blood Count 4.13 10^6/uL (4.20-5.40); Red Cell Distribution Width 12.2 % (11.0-15.0); White Blood Count 7.6 10^3/uL (4.0-11.0)
[2025-02-17] MEDS: LACTATED RINGER'S SOLUTION 1,000 ML 50 ML IV ×3 (09:20→13:05)
[2025-02-17] MEDS: ALBUTEROL SULFATE 2.5 MG/3 ML VIAL NEB IH (09:20)
[2025-02-17 09:26] LABS: HCG Quantitative <1 mIU/mL
[2025-02-17] MEDS: HYDROMORPHONE HCL 0.5 MG/0.5 ML SYRINGE IV (12:15)
--- NOTE | 2025-02-17 12:45 | P.ON_ITS ---
Brief Operative Note Date of procedure: 02/17/25 Pre-op diagnosis general: desires permanent sterilization Post-op diagnosis: same as pre-op Procedure: NAME OF PROCEDURE: [laparoscopic tubal ligation with filschie clips ] PROCEDURE: The patient was taken back to the Operating Room where she was given general anesthesia without difficulty. She was then prepped and draped in the normal sterile fashion after being placed in a dorsal lithotomy position.? A wet sponge stick was placed into the patient?s vagina. Attention was then turned to the patient's abdomen, where a scalpel was used to make a small infraumbilical incision. The S retractors were then used to dissect the underlying layers until the fascia could be seen. The fascia was then grasped with Shira clamps and tented up. A knife was then used to make a small incision to the fascia. The muscle was identified, at that time two sutures of #0 Vicryl on a GI needle was then used and placed through the fascia. The peritoneum was then identified and entered bluntly. The 10-4 Paula was then placed into the patient?s abdomen. This was confirmed with direct visualization of the bowel, using the laparoscope. The patient's abdomen was then insufflated using approximately 4 liters of CO2 gas.? Survey of the patient's abdomen demonstrated ovaries were normal in appearance as well as both tubes. A second left lateral port, which was 7-8 in size, was then placed laterally after incision was made in the skin under direct visualization. The patient?s tube on the patient?s right side was identified, the Filshie clip was then placed in the ampullar region after the fi mbriated edge of the tube was seen. This was performed on the contralateral side as well. The left lateral port was then moved under direct visualization with excellent hemostasis. All instruments were removed from the patient's abdomen. The fascia was closed using the #0 Vicryl on GI needle. The skin was closed using 4-0 Vicryl subcuticularly. All instruments were removed from the patient's vagina as well. The patient was taken out of the dorsal lithotomy position and placed in the supine position and taken to recovery in stable condition. Sponge, lap and needle counts were correct x2.? Anesthesia: CATHRYNA Surgeon: Maulik Snow Estimated blood loss (mL): 5 Pathology: none sent Condition: stable Disposition: PACU Urinary Catheter Management Urinary Catheter Management Urethral: Cath placed during this visit: no
== END 2025-02-17 14:05 | disposition home or self-care (01) ==
PROVIDERS: Visit Provider Obstetrics & Gynecology
PROC: (CPT 851; principal; 2025-02-17 09:50)
DX: Z30.2 Encounter for sterilization (principal); E66.01 Morbid (severe) obesity due to excess calories; Z68.43 Body mass index [BMI] 50.0-59.9, adult
CPT/HCPCS: 58671; 36415; 84702; 85025; 94640; J1100; J1171; J1885; J2250; J2405; J2704; J3010